=== PATIENT | female | born 1995 | race Caucasian/White ===

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

== ENCOUNTER 2020-08-06 20:33 | Outpatient (CLI) | payer OTHER ==
[~2020-08-06 20:33] MED LIST changes: +CEFDINIR300 MG PO; +FLAGYL500 MG PO; +NORCO 5-325 TA1 EACH PO; +PERCOCET 5-3251 EACH PO; +PRENATAL VITAM1 EAC3 PO; +VIBRAMYCIN100 MG PO; +ZOFRAN ODT 4 MG4 MG SL
== END 2020-08-06 23:19 | disposition home or self-care (01) ==
LOC: GENOP 20:33 → OB 22:31 → GENOP 23:19
DX: O99.891 Other specified diseases and conditions complicating pregnancy (principal); R10.9 Unspecified abdominal pain; M54.5 Low back pain; Z3A.39 39 weeks gestation of pregnancy
CPT/HCPCS: G0463

== ENCOUNTER 2020-08-07 21:40 | Inpatient (IN) | payer OTHER ==
[~2020-08-07] VITALS: Ht 157.5 cm; Wt 74.4 kg
[2020-08-07 22:05] LABS: HEMOGLOBIN 13.4 gm/dl (12.3-15.3); RED BLOOD COUNT 4.2 M/UL (4.00-5.10)
[2020-08-08] MEDS ORDERED: ACYCLOVIR200 MG PO (00:13)
[2020-08-08] MEDS ORDERED: PRENATAL VITAM1 EAC3 PO (00:14)
[2020-08-08] MEDS ORDERED: DOCUSATE SODIU250 MG PO (01:19)
[2020-08-08] MEDS ORDERED: IBUPROFEN600 MG PO (01:19)
[2020-08-09 02:40] LABS: HEMOGLOBIN 11.9 gm/dl (12.3-15.3)
== END 2020-08-09 13:38 | disposition home or self-care (01) | DRG 807 ==
LOC: GENOP 21:40 → OB 22:09
PROVIDERS: ADMIT Obstetrics & Gynecology
PROC: 10E0XZZ Delivery of Products of Conception, External Approach (ICD-10-PCS; principal; 2020-08-08)
PROC: 10907ZC Drainage of Amniotic Fluid, Therapeutic from Products of Conception, Via Natural or Artificial Opening (ICD-10-PCS; 2020-08-08)
DX: O98.52 Other viral diseases complicating childbirth (principal); Z37.0 Single live birth; B00.9 Herpesviral infection, unspecified; Z3A.39 39 weeks gestation of pregnancy; Z28.21 Immunization not carried out because of patient refusal; O99.824 Streptococcus B carrier state complicating childbirth; O99.334 Smoking (tobacco) complicating childbirth; F17.210 Nicotine dependence, cigarettes, uncomplicated; O99.52 Diseases of the respiratory system complicating childbirth; J45.909 Unspecified asthma, uncomplicated
CPT/HCPCS: 36415; 51702; 82800; 85014; 85018; 85025; J2590

== ENCOUNTER 2021-05-09 07:53 | Emergency (ER) | payer OTHER ==
[~2021-05-09 07:53] MED LIST changes: +ACYCLOVIR200 MG PO; +DOCUSATE SODIU250 MG PO; +IBUPROFEN600 MG PO
[2021-05-09 08:45] LABS: HEMOGLOBIN 15.9 gm/dl (12.3-15.3); RED BLOOD COUNT 5.04 M/UL (4.00-5.10); WHITE BLOOD COUNT 6.4 K/UL (4.5-11.0)
[2021-05-09 09:22] LABS: BUN/CREATININE RATIO 6 (0-10)
[2021-05-09] MEDS ORDERED: PHENERGAN 25 MG25 M1 PO (10:53)
== END 2021-05-09 11:02 | disposition home or self-care (01) ==
LOC: ER1 07:53
PROVIDERS: Physician Assistant
DX: R11.2 Nausea with vomiting, unspecified (principal); R19.7 Diarrhea, unspecified; F17.200 Nicotine dependence, unspecified, uncomplicated; Z90.49 Acquired absence of other specified parts of digestive tract; Z20.822 Contact with and (suspected) exposure to COVID-19
CPT/HCPCS: 80053; 81001; 84703; 85025; 96374; 99283; J2550; U0002

== ENCOUNTER → 2021-07-31 | Outpatient (CLI) | payer OTHER ==
[~2021-07-31] MED LIST changes: +PHENERGAN 25 MG25 M1 PO
== END ==
LOC: RT 14:37
DX: R00.2 Palpitations (principal)